=== PATIENT | male | born 1940 | race Caucasian/White ===

== ENCOUNTER 2018-06-04 05:07 | Inpatient (IN) ==
[2018-06-04] MEDS ORDERED: MethylPREDNISolone Sod Succinate Inj 125 MG/2 ML Vial ONE (05:57)
[2018-06-04] MEDS ORDERED: Heparin - SQ 10,000 UNITS/ML Vial ONE (05:57)
[2018-06-04] MEDS ORDERED: ceFAZolin 1 GM Premix Inj 1 GM/50 ML PIGGYBACK IV.SIG ONE ×3 (05:57→11:49)
[2018-06-04] MEDS ORDERED: Dextrose 50% in Water 50 ML Vial IV.PUSH PRN ×2 (05:59→13:12)
[2018-06-04] MEDS ORDERED: Insulin Regular (For Infusion) 100 UNIT in Sodium Chlor 0.9% Inj 99 ML IV.CONT PRN (05:59)
[2018-06-04] MEDS ORDERED: Chlorhexidine 4% Topical 120 APPLIC/120 ML Bottle TOPICAL SCH (06:00)
[2018-06-04] MEDS ORDERED: Sodium Chlor 0.9% Inj 77.5 ML, Papaverine Inj 60 MG, Nitroglycerin Inj 100 MCG, dilTIAZ... IRRIGATION SCH ×3 (06:00)
[2018-06-04] MEDS ORDERED: Sodium Chloride 0.9% Irr Bot 500 ML, ceFAZolin Inj 500 MG IRRIGATION SCH ×2 (06:00)
[2018-06-04] MEDS: Metoprolol Tartrate 25 MG Tablet PO SCH (06:13)
[2018-06-04] MEDS ORDERED: Chlorhexidine Gluconate 2% 1 Pack (2 Cloths) TOPICAL ONE (06:15)
[2018-06-04] MEDS ORDERED: Sodium Chlor 0.9% Inj 500 ML IV.CONT ONE (06:15)
[2018-06-04] MEDS ORDERED: ceFAZolin 2 GM Premix Inj 2 GM/50 ML PIGGYBACK IV.SIG SCH (07:00)
[2018-06-04] MEDS ORDERED: CUST1000P IRRIGATION ONE (07:25)
[2018-06-04] MEDS ORDERED: Potassium Chloride Inj 40 MEQ/20 ML Vial ONE (07:26)
[2018-06-04] MEDS ORDERED: Albumin Human 25% Inj 50 ML IV.SIG ONE (07:27)
[2018-06-04] MEDS ORDERED: Heparin 10,000 UNITS/10 ML Vial (for IV use) ONE (07:28)
[2018-06-04] MEDS ORDERED: Potassium Chlor 20 mEq Premix 20 MEQ/100 ML PIGGYBACK IV.SIG ONE (12:57)
[2018-06-04] MEDS ORDERED: Post-op Orders (for Pharmacy) OTHER STA (13:12)
[2018-06-04] MEDS ORDERED: RESP: Racemic Epinephrine 2.25% 0.5 ML Neb NEB PRN (13:12)
[2018-06-04] MEDS ORDERED: Magnesium Sulfate Inj 2 GM in Sodium Chlor 0.9% Inj 96 ML IV.SIG PRN ×4 (13:12)
[2018-06-04] MEDS ORDERED: Calcium Chloride Inj 1 GM/10 ML Syringe IV.PUSH PRN (13:12)
[2018-06-04] MEDS ORDERED: fentaNYL Citrate Inj 100 MCG/2 ML Ampul IV.PUSH PRN (13:12)
[2018-06-04] MEDS ORDERED: Potassium Chlor 20 mEq Premix 20 MEQ/100 ML PIGGYBACK IV.SIG PRN (13:12)
[2018-06-04] MEDS ORDERED: Clevidipine Inj 25 MG/50 ML VIAL IV.CONT PRN (13:12)
--- NOTE | 2018-06-04 13:31 | P.OP ---
- Preoperative Diagnosis (1) Aortic stenosis (2) CAD (coronary artery disease) (3) Diastolic heart failure (4) Chest pain Postoperative Diagnosis: same Date of procedure: 06/04/18 Procedure: AVR with a 23 Koo Magna Ease tissue valve CABG x 3 MCKENZIE to LAD - good SVG to OM3 - good SVG to PDA - good EVH MARGAUX Implants: 23 Koo pericardial valve Anesthesia: GETA Surgeon: Valerie Pal MD Metallurgical Inspector: Krissy Dickey Pathology: other (aortic valve fragments) Operation and Findings: Cross-clamp time 107 minutes Cardiopulmonary bypass time 132 minutes Drains 36 Tongan mediastinum and 32 Tongan left pleural chest tubes Findings: The patient had a moderately calcified trileaflet aortic valve. The OM2 artery was too small to graft. At the conclusion of the procedure, intraoperative MARGAUX showed a well-seated aortic valve with no perivalvular leaks. Left ventricular function was normal. Disposition: The patient was transferred to the CVICU in stable, but guarded condition. Operation in detail: After adequate general anesthesia, the patient was prepped and draped in the usual manner. A median sternotomy was performed and electrocautery was used to obtain hemostasis. Left internal mammary artery was procured as a pedicle from the 7th ribs to the 1st rib in the usual manner. Simultaneously, the right greater saphenous vein was procured using a minimally invasive endoscopic technique. The vein was prepared for anastomosis and the leg wound was irrigated and closed in 2 layers. The pericardium was opened and the distal mammary artery was instrumented for anastomosis after adequate heparinization for cardiopulmonary bypass. The heart was instrumented for cardiopulmonary bypass in the usual manner. Antegrade Custodiol cardioplegia was used. The left ventricle was vented through the right superior pulmonary vein. The patient was placed on cardiopulmonary bypass and target vessels were identified. And aortic cross-clamp was applied and the heart was arrest is using Custodiol antegrade cardioplegia. After adequate arrest, the PDA was opened with a [place] blade and found to be a 1.5 mm good target. The saphenous vein was approximated to the artery using a running 7-0 Prolene suture. The vein was measured for length and orientation and the proximal anastomosis was performed using a running 5-0 prolene suture after creating an aortotomy with a 5 mm punch. The 3rd circumflex marginal artery was opened with a [place] blade and found to be a 1.5 millimeter good target. The saphenous vein was approximated to the artery using a running 7-0 Prolene suture. The vein was measured for length and orientation and suspended from the pericardium.The distal LAD was then opened with a [place] blade and found to be a 1-1/2 millimeters . The left internal mammary artery was approximated to the LAD using a running 7 0 Prolene suture. The pedicle was tacked to the epicardium using interrupted 5 0 silk suture. The aorta was vented and opened above the sinotubular ridge. The valve was found to be trileaflet and moderately calcified. Aortic valve was excised sharply and the annulus was decalcified using rongeurs. The annulus was sized to a 23 Magna Ease bioprosthetic valve which was seated using several interrupted 2-0 Tycron pledgeted horizontal mattress sutures. After seating the valve and securing the sutures, the aorta was repaired in 2 layers using running 4-0 Prolene suture. The patient was placed in steep Trendelenburg position,and the aorta was vented and the proximal anastomosis to the OM3 graft was performed using a running 5-0 Prolene suture after creating an aortotomy with a 5 millimeter punch. The aorta and left ventricle were vented and the aortic cross-clamp was removed for a total cross-clamp time of 107 minutes. The heart resumed a bradycardic rhythm which eventually converted to a sinus rhythm after several minutes. The heart was filled allowed to eject. The aortic valve replacement was then assessed by intraoperative MARGAUX. The valve was found to be well seated with no perivalvular leak. Left ventricular function was noted to be normal. The patient was weaned from cardiopulmonary bypass for total bypass run of 132 minutes. Protamine was administered to reverse the heparin and all cannulae were removed without incident. A 36 Tongan mediastinal/ 32 Tongan left pleural chest tubes were positioned and each was secured to the skin with a 0 silk suture. The operative field was then examined again for hemostasis which was obtained using electrocautery. The wound was then closed in layers by approximating the sternal tables with interrupted number 6 stainless steel wires following which the presternal fashion was approximately around a 1. PDS suture. The wound was copiously irrigated. The subcutaneous tissue was approximated using a running 2- 0 Vicryl suture and the skin was approximated with running 4-0 Monocryl subcuticular stitch. All sponge and instrument counts were correct at the close of the procedure and the patient was transported the CVICU in stable, but guarded condition. Valerie Pal M.D., F.Patricia.C.C., F.A.C.S.
[2018-06-04] MEDS ORDERED: Albumin Human 5% Inj 500 ML IV.SIG ONE (13:40)
--- NOTE | 2018-06-04 13:42 | P.PNCV ---
- Note Subjective/Hospital Course: pt initally seen 78-year-old male patient of Dr. Angelita Goodman, also Dr. Riley, who has symptoms of fatigue, known heart murmur for the last 20 years. Went in for a followup visit with Dr. Riley with a recent positive nuclear stress test. Underwent elective cardiac catheterization today, which showed an ejection fraction of 60%, proximal LAD 75% stenosed, the circumflex was 90% stenosed, the OM 90%, the RCA was 99% stenosed, which was nondominant. The patient also has history of aortic valve stenosis. Recent echocardiogram on 05/25/2018 from showed an aortic valve area 0.8, some trace mitral regurgitation, mild tricuspid regurgitation. We were consulted to evaluate for coronary artery bypass grafting and aortic valve replacement. PAST MEDICAL HISTORY: Carotid artery disease. Most recent carotid ultrasound showed less than 50% on right and left internal carotids, History of CVA, TIA. He had a lacunar infarct noticed on an MRI of the brain in 10/2017. There were revealed some scattered old lacunar infarcts within the bilateral basal ganglia, History of hypertension, Hyperlipidemia, Diet-controlled diabetes mellitus, Crohn's disease, Remote history of gastrointestinal bleed when he was 33 years old. 06/04/18 pt electively admitted for surgery surgery: Objective: Vital Signs - 24 hr 06/04/18 06:31 Temperature 98.4 F Pulse Rate 80 Respiratory Rate 16 Blood Pressure 144/79 H Pulse Oximetry 94 L Labs: Laboratory Results - last 12 hr 06/04/18 06:10 Blood Type O Positive Antibody Screen Negative MTS Gel Crossmatch See Detail
--- NOTE | 2018-06-04 13:47 | P.DCO ---
- Diagnosis (1) S/P AVR (aortic valve replacement) Status: Acute (2) S/P CABG (coronary artery bypass graft) Status: Acute (3) Aortic stenosis Status: Acute (4) CAD (coronary artery disease) Status: Acute (5) Diastolic heart failure Status: Chronic (6) Chest pain Status: Acute - Home Health Nursing Order: Medical education, Signs/symptoms of disease process, Diabetic education , Wound care and dressing changes, Nursing assessment with vital signs Instructions: PREVENA Single Use Negative Wound Therapy System Caregiver Instruction Sheet 1. A Prevena dressing system was applied to the chest incision during surgery , to promote wound healing. It works via a suction device (negative pressure wound therapy) to remove low to moderate levels of exudate (drainage) and infectious materials. We recommend that the device stay in place for up to seven days, from day of surgery. 2. Day of Surgery___// Day of Removal __// 3. The dressing should only be removed by a health manager respiratory care. Please arrange removal of device to coincide with Home Health visit and or with Nursing staff at Rehab 4. If skin reddening or irritation of skin occurs, or excessive drainage, please notify the Cardiovascular Surgeons office at [phone]. 5. Light showering is permissible; however the pump should be disconnected and placed in safe location, where it will not get wet. The dressing should not be exposed to direct spray or submerged in water. No bath tub / shower only. Ensure the end of the tubing attached to the dressing is facing down so that water does not enter the top of the tube. 6. To remove Prevena dressing: press purple button to turn off device / remove the suction. Then disconnect the tubing from the pump. The fixation strips should be stretched away from the skin and the dressing lifted at one corner and peeled back until it has been fully removed. 7. After removal, it is ok to shower daily using liquid dial soap and clean wash cloth, rinse and pat dry, and leave incision open to air dry. For any concerns regarding Prevena dressing, and or wounds, please contact Meena Berry, patient navigator at [phone] or notify the Cardiovascular Surgeons office at [phone]. Incentive spirometry Q1 hr x 10, while awake, also use acapella device hourly whole awake Sternal Breast Bone Precautions: NO pushing or pulling, ( pt must use sternal pillow to support chest with all activities and with coughing ( takes up to 3 months breast bone to heal ) Daily incision care: ok to shower daily, no tub bath. Wash all incisions with liquid dial soap, clean wash cloth to each site, rinse and pat dry. Observe for any signs of infection, such as drainage which is dark yellow, lucas, green or foul smelling. Immediately report to the surgeon any drainage from the chest incision, or legs, and for any abnormal drainage from the chest tube sites. Notify surgeon if any temp >101.5 degrees F. When specialty dressing removed/ or if you do not have one, continue to shower daily as above, then rinse and pat incision dry and paint with betadine daily x 5 days. Allow steri strips to fall off if you have any. Avoid lotions, creams, salves, oils, etc. for the first month Please see attached forms for additional instructions regarding post Open Heart specialty wound vacuum dressings. LUZ MARINA or Prevena , Dressing to be removed by Nursing staff on __06/11/[address] Pal patients , please obtain CBC, BMP, PA & Lat CXR in 2 weeks, results to Dr. Pal ( prescription will be given) ( ) (Tele: [phone]) , Valve replacement pts will need 2decho in 2 weeks with results to Dr. Pal . Please obtain 2 d echo at your station cleaning porter office if possible F/U appointment: as per DC instructions: PCP in 2 weeks, CV surgeon 2 weeks, Hydro Plant Site Manager 3-4 weeks For any questions regarding incisions/ dressing / meds / post op care or above Symptoms, Thursday 8am-5pm Heart & Vascular Surgery Office ( Dr. Kaminski & Dr. Pal), After Hours / Nights (5pm -8am) Weekends and Holidays Please call [facility] Cardiac Inter[facility] Unit (CIC) Charge Nurse Heart and Vascular Surgery patients *Special attention to sternal dressing Mandatory frequency Assess and evaluation, 4 days in a row The next week 3X week 2 times a week for 4 weeks 1 time a week for 5 weeks Schedule Heart and Vascular patients for full 60 day certification period Initial visit Review Open Heart Surgery Discharge Instructions (Sternal precautions, Activity, Elastic hose, Incision care, Driving, Incentive spirometry, Smoking, [place], Work and other) Need Betadine to paint incision Medication reconciliation Importance of follow up care/ check on appointments Make calendar record temperature daily When to call [facility] at Home nurse, review instructions, phone list Incentive Spirometry, demonstration Visit 1- Begin discharge instruction for patient family and/ or caregiver using teach back method- Signs and symptoms of infection Disease characteristics Medicines and side effects Foods and nutrition/ appetite Infection control/ hand washing/ hygiene Visit 2- Continue teaching Discharge instructions- include additional information on smoking cessation , sternal dressing (sternal vac) Visit 3- Continue teaching- Cough and deep breathing, incision monitoring. Choose my plate Visit 4- Continue teaching- Discuss limitations Discuss how they are feeling Discuss progress toward goals Remaining visits- continue teaching and monitoring For any questions please call : Thursday 8am-5pm Heart & Vascular Surgery Office ( Dr. Kaminski & Dr. Pal), After Hours / Nights (5pm -8am) Weekends and Holidays Please call [facility] Cardiac Intermediate Care Unit (CIC) Charge Nurse - Case Management Consult Case Management Consult-Home Health: Yes - Certification I have seen patient Nagi Cordoba on 06/04/18. My clinical findings support the need for the requested home health care services because: Deconditioned with increased weakness I certify that my clinical findings support that this patient is homebound because: Post-op weakness
[2018-06-04] MEDS ORDERED: fentaNYL Citrate Inj 250 MCG/5 ML Ampul ONE ×2 (14:00)
--- NOTE | 2018-06-04 14:02 | XR ---
EXAM DATE: 06/04/2018 1:59 PM EST AGE/SEX: 78 years / Male INDICATIONS: Evaluate for cardiac disease. CLINICAL DATA: This is the patient's initial encounter. Patient reports that signs and symptoms have been present for 1 day and indicates a pain score of Nonresponsive. MEDICAL/SURGICAL HISTORY: Non-responsive. CABG. COMPARISON: [facility], CHEST 2V PA&LAT, 05/25/2018. . FINDINGS: Median sternotomy wires are noted status post coronary artery bypass graft surgery. Endotracheal tube has its tip 2 cm above the mimi. Mediastinal drain and left chest tube are in good positions. No p neumothorax is noted. No pulmonary edema is noted. Right internal jugular central line has its tip in superior vena cava. The lungs are clear. CONCLUSION: 1. No focal infiltrate or pulmonary vascular congestion status post coronary artery bypass graft pro cedure. 2. Multiple tubes and lines are in good positions. Electronically signed by: Adelfo Stratton MD Board Certified Radiologist 06/04/2018 2:01 PM EST
[2018-06-04] MEDS: Albumin Human 25% Inj 0 ML IV.SIG ONE ×2 (14:13→14:59)
[2018-06-04] MEDS: Potassium Chlor 20 mEq Premix 20 MEQ/100 ML PIGGYBACK IV.SIG PRN ×3 (14:16→20:32)
[2018-06-04] MEDS: Calcium Chloride Inj 1 GM in Sodium Chlor 0.9% Inj 100 ML IV.SIG PRN ×2 (14:17→16:46)
[2018-06-04] MEDS: Albumin Human 5% Inj 250 ML IV.SIG PRN ×2 (14:58→20:51)
[2018-06-04] MEDS: Insulin Regular (For Infusion) 100 UNIT in Sodium Chlor 0.9% Inj 99 ML IV.CONT PRN (19:00)
[2018-06-04] MEDS: Metoprolol Inj 5 MG/5 ML Vial IV.PUSH PRN ×2 (19:41→19:45)
[2018-06-04] MEDS: hydrALAZINE HCl Inj 20 MG/ML Vial IV.PUSH PRN (19:48)
[2018-06-04] MEDS: ceFAZolin Inj 1 GM in Sodium Chlor 0.9% Inj 100 ML IV.SIG SCH (19:55)
[2018-06-04] MEDS: Dexmedetomidine Inj 200 MCG in Sodium Chlor 0.9% Inj 48 ML IV.CONT PRN (20:00)
[2018-06-05] MEDS: Metoprolol Inj 5 MG/5 ML Vial IV.PUSH PRN ×3 (00:12→20:09)
[2018-06-05] MEDS: Amiodarone 200 MG Tablet PO SCH ×3 (02:01→20:14)
[2018-06-05] MEDS: Insulin Regular (For Infusion) 100 UNIT in Sodium Chlor 0.9% Inj 99 ML IV.CONT PRN (02:47)
[2018-06-05] MEDS: Dexmedetomidine Inj 200 MCG in Sodium Chlor 0.9% Inj 48 ML IV.CONT PRN (04:15)
[2018-06-05] MEDS: ceFAZolin Inj 1 GM in Sodium Chlor 0.9% Inj 100 ML IV.SIG SCH ×2 (04:17→12:16)
[2018-06-05 04:36] LABS: Hematocrit 28.6 % (39.0-51.0); Hemoglobin 9.8 gm/dL (13.0-17.0); Mean Corpuscular HGB Conc 34.3 % (32.0-36.0); Mean Corpuscular Hemoglobin 29.7 pg (27.0-34.0); Mean Corpuscular Volume 86.6 fL (80.0-100.0); Mean Platelet Volume 8.3 fL (7.0-11.0); Platelet Count 153 th/mm3 (150-450); Red Cell Distribution Width 14.6 % (11.6-17.2); White Blood Count 10.6 th/mm3 (4.0-11.0)
[2018-06-05 04:59] LABS: Carbon Dioxide 24.1 meq/L (21.0-32.0); Magnesium 2.1 mg/dL (1.5-2.5); Potassium 3.7 meq/L (3.5-5.1)
--- NOTE | 2018-06-05 06:11 | XR ---
EXAM DATE: 06/05/2018 6:01 AM EST AGE/SEX: 78 years / Male INDICATIONS: Shortness of breath, possible pneumothorax. CLINICAL DATA: This is the patient's subsequent encounter. Patient reports that signs and symptoms h ave been present for 2 days and indicates a pain score of 9/10. MEDICAL/SURGICAL HISTORY: Diabetes. Hypertension. Crohn?s disease. CABG. Carotid endarterect isaac. COMPARISON: [facility], CHEST 1V SINGLE AP, 06/04/2018. . FINDINGS: Median sternotomy changes are again noted. Mediastinal drain and left chest tube remain in place. No pneumothorax. Mild left base atelectasis and tiny pleural effusion noted. Heart size within normal limits. Patient has been extubated. Right internal jugular central venous ca theter with tip in the superior vena cava again noted. CONCLUSION: 1. Mild atelectasis and tiny effusion at the left lung base. 2. Interim extubation and nasogastric tube removal. Left chest tube, mediastinal drain and right IJ central venous catheter remain. Electronically signed by: Joshua Jha MD Board Certified Radiologist 06/05/2018 6:10 AM EST
[2018-06-05] MEDS: amLODIPine 5 MG Tablet PO SCH (08:58)
[2018-06-05] MEDS: Finasteride 5 MG Tablet PO SCH (08:58)
--- NOTE | 2018-06-05 10:09 | P.PNCV ---
- Note CVT: Post Op Day #: 1 Subjective/Hospital Course: pt initally seen 78-year-old male patient of Dr. Angelita Goodman, also Dr. Riley, who has symptoms of fatigue, known heart murmur for the last 20 years. Went in for a followup visit with Dr. Riley with a recent positive nuclear stress test. Underwent elective cardiac catheterization today, which showed an ejection fraction of 60%, proximal LAD 75% stenosed, the circumflex was 90% stenosed, the OM 90%, the RCA was 99% stenosed, which was nondominant. The patient also has history of aortic valve stenosis. Recent echocardiogram on 05/25/2018 from showed an aortic valve area 0.8, some trace mitral regurgitation, mild tricuspid regurgitation. We were consulted to evaluate for coronary artery bypass grafting and aortic valve replacement. PAST MEDICAL HISTORY: Carotid artery disease. Most recent carotid ultrasound showed less than 50% on right and left internal carotids, History of CVA, TIA. He had a lacunar infarct noticed on an MRI of the brain in 10/2017. There were revealed some scattered old lacunar infarcts within the bilateral basal ganglia, History of hypertension, Hyperlipidemia, Diet-controlled diabetes mellitus, Crohn's disease, Remote history of gastrointestinal bleed when he was 33 years old. 06/04/18 pt electively admitted for surgery surgery: AVR, 23 Koo tissue valve, CABG x 3 05/26/18 Confused this morning. O and A x 1. No focal findings on exam, but repeats himself and isn't following commands either. Objective: Vital Signs - 24 hr 06/04/18 13:35 06/04/18 13:43 06/04/18 13:48 Temperature 97.6 F 97.6 F Pulse Rate 83 Respiratory Rate 12 12 Blood Pressure 87/49 L Pulse Oximetry 99 99 06/04/18 14:00 06/04/18 14:45 06/04/18 15:28 Temperature 96.0 F L Pulse Rate 74 77 71 Respiratory Rate 10 L Blood Pressure 128/54 L Pulse Oximetry 99 06/04/18 16:25 06/04/18 16:51 06/04/18 16:54 Temperature 97.1 F L 97.1 F L Pulse Rate 85 Respiratory Rate 18 Blood Pressure 116/47 L Pulse Oximetry 98 99 06/04/18 17:49 06/04/18 17:57 06/04/18 19:00 Temperature 97.5 F L 98 F Pulse Rate 97 H 89 100 H Respiratory Rate 16 18 16 Blood Pressure 124/54 L 127/58 L Pulse Oximetry 99 97 06/04/18 20:18 06/04/18 22:00 06/04/18 23:00 Temperature 97.6 F 98.3 F Pulse Rate 83 115 H Respiratory Rate 18 16 Blood Pressure 130/72 Pulse Oximetry 95 95 06/04/18 23:47 06/05/18 03:00 06/05/18 03:51 Temperature 98.3 F 99.3 F Pulse Rate 104 H 101 H Respiratory Rate 16 20 Blood Pressure 147/56 H Pulse Oximetry 100 06/05/18 07:23 06/05/18 07:28 Temperature 99.1 F Pulse Rate 102 H 98 H Respiratory Rate 18 Blood Pressure 144/58 H Pulse Oximetry 100 Labs: Laboratory Results - last 12 hr 06/04/18 06/04/18 06/05/18 22:15 23:55 01:04 WBC RBC Hgb Hct MCV MCH MCHC RDW Plt Count MPV Sodium Potassium Chloride Carbon Dioxide Anion Gap BUN Creatinine Estimated GFR POC Glucose 95 180 H 165 H Random Glucose Calcium Magnesium 06/05/18 06/05/18 06/05/18 02:13 03:44 04:05 WBC 10.6 RBC 3.30 L Hgb 9.8 L Hct 28.6 L MCV 86.6 MCH 29.7 MCHC 34.3 RDW 14.6 Plt Count 153 D MPV 8.3 Sodium Potassium Chloride Carbon Dioxide Anion Gap BUN Creatinine Estimated GFR POC Glucose 145 H 149 H Random Glucose Calcium Magnesium 06/05/18 06/05/18 06/05/18 04:05 04:33 05:16 WBC RBC Hgb Hct MCV MCH MCHC RDW Plt Count MPV Sodium 143 Potassium 3.7 Chloride 107 Carbon Dioxide 24.1 Anion Gap 12 BUN 18 Creatinine 1.12 Estimated GFR 63 L POC Glucose 110 137 H Random Glucose 115 H Calcium 8.0 L Magnesium 2.1 06/05/18 06:26 WBC RBC Hgb Hct MCV MCH MCHC RDW Plt Count MPV Sodium Potassium Chloride Carbon Dioxide Anion Gap BUN Creatinine Estimated GFR POC Glucose 114 H Random Glucose Calcium Magnesium Result Diagrams: 06/05/18 04:05 06/05/18 04:05 Imaging: Chest X-Ray 06/05/18 05:00 CONCLUSION: 1. Mild atelectasis and tiny effusion at the left lung base. 2. Interim extubation and nasogastric tube removal. Left chest tube, mediastinal drain and right IJ central venous catheter remain. Cardiovascular: RRR Telemetry: ST Pulmonary: Few crackles bilaterally GI/: NABS, NT Incision: dry and intact CT: ~600 ml since OR - Plan (3) Aortic stenosis (4) CAD (coronary artery disease) (5) Diastolic heart failure (6) Chest pain Will hold all pain medications and d/c Precedex. Serial neuro exams Continue chest tubes Diurese PT/OT - up to chair Start lopressor Advance diet CBC, BMP in AM. Patient has baseline dementia. Hope for some clearing neurologically. (3) Aortic stenosis Qualifiers: Cardiac valve disease etiology: etiology unspecified Qualified Code(s): I35.0 - Nonrheumatic aortic (valve) stenosis (4) CAD (coronary artery disease) Qualifiers: Coronary Disease-Associated Artery/Lesion type: [place] artery [place] vs. transplanted heart: [place] heart Associated angina: with stable angina Qualified Code(s): I25.118 - Atherosclerotic heart disease of [place] coronary artery with other forms of angina pectoris (5) Diastolic heart failure Qualifiers: Heart failure chronicity: acute on chronic Qualified Code(s): I50.33 - Acute on chronic diastolic (congestive) heart failure (6) Chest pain Qualifiers: Chest pain type: chest pain due to myocardial ischemia Ischemic chest pain type: stable angina pectoris Qualified Code(s): I20.8 - Other forms of angina pectoris
[2018-06-05] MEDS: hydrALAZINE HCl Inj 20 MG/ML Vial IV.PUSH PRN (11:13)
--- NOTE | 2018-06-05 11:29 | ECG ---
Date Performed: 06/05/2018 Time Performed: 06:21:28 PTAGE: 78 years EKG: Sinus rhythm Inferior infarct - age undetermined Abnormal ECG NO PREVIOUS TRACING DOCTOR: Jim Woods Interpretating Date/Time 06/05/2018 11:27:57
[2018-06-05] MEDS: Metoprolol Tartrate 25 MG Tablet PO SCH ×2 (11:44→20:14)
[2018-06-05] MEDS: Insulin NovoLOG Aspart Correctional Sugar Inj SQ SCH ×3 (14:11→21:44)
[2018-06-05] MEDS: ceFAZolin 1 GM Premix Inj 1 GM/50 ML PIGGYBACK IV.SIG SCH (20:09)
[2018-06-05] MEDS: Docusate Sodium 100 MG Capsule PO SCH ×2 (20:14→20:24)
[2018-06-06] MEDS: Insulin NovoLOG Aspart Correctional Sugar Inj SQ SCH ×6 (02:47→21:38)
[2018-06-06] MEDS: ceFAZolin 1 GM Premix Inj 1 GM/50 ML PIGGYBACK IV.SIG SCH (03:01)
[2018-06-06 04:57] LABS: Baso % (Auto) 0.1 % (0.0-2.0); Hematocrit 29.6 % (39.0-51.0); Hemoglobin 10.4 gm/dL (13.0-17.0); Lymph # (Auto) 1.6 th/mm3 (1.0-4.8); Lymph % (Auto) 11.2 % (9.0-44.0); Mean Corpuscular Hemoglobin 29.8 pg (27.0-34.0); Mean Corpuscular Volume 85.1 fL (80.0-100.0); Mono # (Auto) 1.7 th/mm3 (0.0-0.9); Mono % (Auto) 11.7 % (0.0-8.0); Neut # (Auto) 10.9 th/mm3 (1.8-7.7); Platelet Count 184 th/mm3 (150-450); Red Blood Count 3.48 mil/mm3 (4.50-5.90); Red Cell Distribution Width 14.4 % (11.6-17.2); White Blood Count 14.2 th/mm3 (4.0-11.0)
[2018-06-06 05:22] LABS: Carbon Dioxide 30.8 meq/L (21.0-32.0); Potassium 3.4 meq/L (3.5-5.1)
[2018-06-06] MEDS: Docusate Sodium 100 MG Capsule PO SCH ×3 (08:26→21:36)
[2018-06-06] MEDS: Amiodarone 200 MG Tablet PO SCH ×3 (08:26→21:36)
[2018-06-06] MEDS: Finasteride 5 MG Tablet PO SCH ×2 (08:28→12:26)
[2018-06-06] MEDS: amLODIPine 5 MG Tablet PO SCH ×2 (08:28→12:27)
[2018-06-06] MEDS: Polyethylene Glycol 3350 17 GM Packet PO SCH ×2 (08:28→12:26)
[2018-06-06] MEDS: Metoprolol Tartrate 25 MG Tablet PO SCH ×3 (08:28→21:37)
[2018-06-06] MEDS: Multivitamin/Minerals Therapeutic Tablet PO SCH ×2 (08:29→12:27)
--- NOTE | 2018-06-06 10:44 | P.PNCV ---
- Note CVT: Post Op Day #: 2 Subjective/Hospital Course: pt initally seen 78-year-old male patient of Dr. Angelita Goodman, also Dr. Riley, who has symptoms of fatigue, known heart murmur for the last 20 years. Went in for a followup visit with Dr. Riley with a recent positive nuclear stress test. Underwent elective cardiac catheterization today, which showed an ejection fraction of 60%, proximal LAD 75% stenosed, the circumflex was 90% stenosed, the OM 90%, the RCA was 99% stenosed, which was nondominant. The patient also has history of aortic valve stenosis. Recent echocardiogram on 05/25/2018 from showed an aortic valve area 0.8, some trace mitral regurgitation, mild tricuspid regurgitation. We were consulted to evaluate for coronary artery bypass grafting and aortic valve replacement. PAST MEDICAL HISTORY: Carotid artery disease. Most recent carotid ultrasound showed less than 50% on right and left internal carotids, History of CVA, TIA. He had a lacunar infarct noticed on an MRI of the brain in 10/2017. There were revealed some scattered old lacunar infarcts within the bilateral basal ganglia, History of hypertension, Hyperlipidemia, Diet-controlled diabetes mellitus, Crohn's disease, Remote history of gastrointestinal bleed when he was 33 years old. 06/04/18 pt electively admitted for surgery surgery: AVR, 23 Koo tissue valve, CABG x 3 06/05/18 Confused this morning. O and A x 1. No focal findings on exam, but repeats himself and isn't following commands either. 06/06/18 Periods of agitation and confusion - improved since yesterday. He is refusing to take oral medications. Objective: Vital Signs - 24 hr 06/05/18 11:00 06/05/18 11:04 06/05/18 11:25 Temperature 99.0 F Pulse Rate 111 H 115 H Respiratory Rate 18 Blood Pressure 184/73 H Pulse Oximetry 93 L 94 L 06/05/18 11:55 06/05/18 14:51 06/05/18 15:45 Temperature 99.3 F Pulse Rate 113 H 121 H 122 H Respiratory Rate 18 Blood Pressure 155/60 H 154/72 H Pulse Oximetry 94 L 95 06/05/18 19:00 06/05/18 20:00 06/05/18 20:28 Temperature 97.3 F L Pulse Rate 105 H 110 H Respiratory Rate 20 Blood Pressure 175/79 H Pulse Oximetry 96 96 06/05/18 21:00 06/05/18 22:00 06/05/18 23:00 Temperature Pulse Rate 111 H 111 H 110 H Respiratory Rate Blood Pressure Pulse Oximetry 06/06/18 00:00 06/06/18 01:00 06/06/18 02:00 Temperature 97.6 F Pulse Rate 110 H 105 H 102 H Respiratory Rate 20 Blood Pressure 153/86 H Pulse Oximetry 96 06/06/18 03:00 06/06/18 04:00 06/06/18 05:00 Temperature 98.4 F Pulse Rate 100 H 103 H 112 H Respiratory Rate 16 Blood Pressure 152/73 H Pulse Oximetry 94 L 06/06/18 06:00 06/06/18 07:00 06/06/18 07:48 Temperature Pulse Rate 107 H 104 H 104 H Respiratory Rate 16 Blood Pressure 191/91 H Pulse Oximetry 95 06/06/18 08:00 06/06/18 08:37 Temperature Pulse Rate 105 H 101 H Respiratory Rate 20 Blood Pressure 155/84 H Pulse Oximetry Labs: Laboratory Results - last 12 hr 06/06/18 06/06/18 06/06/18 02:31 04:40 04:40 WBC 14.2 H RBC 3.48 L Hgb 10.4 L Hct 29.6 L MCV 85.1 MCH 29.8 MCHC 35.0 RDW 14.4 Plt Count 184 MPV 8.0 Neut % (Auto) 77.0 H Lymph % (Auto) 11.2 Cook % (Auto) 11.7 H Eos % (Auto) 0.0 Baso % (Auto) 0.1 Neut # (Auto) 10.9 H Lymph # (Auto) 1.6 Cook # (Auto) 1.7 H Eos # (Auto) 0.0 Baso # (Auto) 0.0 WBC Differential . Differential Comment Auto diff final Sodium 141 Potassium 3.4 L Chloride 101 Carbon Dioxide 30.8 Anion Gap 9 BUN 23 H Creatinine 1.04 Estimated GFR 69 L POC Glucose 145 H Random Glucose 126 H Calcium 8.0 L Magnesium 2.0 Result Diagrams: 06/06/18 04:40 06/06/18 04:40 Imaging: Chest X-Ray 06/05/18 05:00 CONCLUSION: 1. Mild atelectasis and tiny effusion at the left lung base. 2. Interim extubation and nasogastric tube removal. Left chest tube, mediastinal drain and right IJ central venous catheter remain. Cardiovascular: RRR Telemetry: Sinus tach Pulmonary: Decreased BS bilat GI/: NABS, NT Incision: Dry and intact CT: ~140ml/12 hrs - Plan (3) Aortic stenosis (4) CAD (coronary artery disease) (5) Diastolic heart failure (6) Chest pain Transfer to stepdown Remove [place] and chest tubes CXR, CBC, BMP in AM Supp K D/C lasix Patient refusing oral meds, but hypertensive and tachycardic. Will change BB to IV for now. If no change, will consider Neurology consultation. (3) Aortic stenosis Qualifiers: Cardiac valve disease etiology: etiology unspecified Qualified Code(s): I35.0 - Nonrheumatic aortic (valve) stenosis (4) CAD (coronary artery disease) Qualifiers: Coronary Disease-Associated Artery/Lesion type: [place] artery [place] vs. transplanted heart: [place] heart Associated angina: with stable angina Qualified Code(s): I25.118 - Atherosclerotic heart disease of [place] coronary artery with other forms of angina pectoris (5) Diastolic heart failure Qualifiers: Heart failure chronicity: acute on chronic Qualified Code(s): I50.33 - Acute on chronic diastolic (congestive) heart failure (6) Chest pain Qualifiers: Chest pain type: chest pain due to myocardial ischemia Ischemic chest pain type: stable angina pectoris Qualified Code(s): I20.8 - Other forms of angina pectoris
[2018-06-06] MEDS: Potassium Chlor 20 mEq Premix 20 MEQ/100 ML PIGGYBACK IV.SIG PRN ×2 (11:05→13:14)
[2018-06-06] MEDS: Metoprolol Inj 5 MG/5 ML Vial IV.PUSH PRN ×2 (11:11→12:00)
[2018-06-06 17:17] LABS: Calcium 8.1 mg/dL (8.5-10.1); Carbon Dioxide 34.6 meq/L (21.0-32.0); Magnesium 2.2 mg/dL (1.5-2.5); Potassium 3.5 meq/L (3.5-5.1)
[2018-06-07 01:33] LABS: Calcium 7.9 mg/dL (8.5-10.1); Carbon Dioxide 31.4 meq/L (21.0-32.0); Magnesium 2.3 mg/dL (1.5-2.5)
[2018-06-07] MEDS ORDERED: Bisacodyl 10 MG Supp RECTAL PRN (06:00)
[2018-06-07] MEDS: Insulin NovoLOG Aspart Correctional Sugar Inj SQ SCH ×4 (08:00→21:26)
[2018-06-07] MEDS: Polyethylene Glycol 3350 17 GM Packet PO SCH (08:20)
[2018-06-07] MEDS: Docusate Sodium 100 MG Capsule PO SCH ×2 (08:21→21:12)
[2018-06-07] MEDS: Metoprolol Tartrate 25 MG Tablet PO SCH ×3 (08:21→21:14)
[2018-06-07] MEDS: Amiodarone 200 MG Tablet PO SCH ×2 (08:21→21:16)
[2018-06-07] MEDS: Multivitamin/Minerals Therapeutic Tablet PO SCH (08:21)
[2018-06-07] MEDS: amLODIPine 5 MG Tablet PO SCH (08:21)
[2018-06-07] MEDS: Finasteride 5 MG Tablet PO SCH (08:22)
--- NOTE | 2018-06-07 10:53 | P.PNCV ---
- Note Subjective/Hospital Course: pt initally seen 78-year-old male patient of Dr. Angelita Goodman, also Dr. Riley, who has symptoms of fatigue, known heart murmur for the last 20 years. Went in for a followup visit with Dr. Riley with a recent positive nuclear stress test. Underwent elective cardiac catheterization today, which showed an ejection fraction of 60%, proximal LAD 75% stenosed, the circumflex was 90% stenosed, the OM 90%, the RCA was 99% stenosed, which was nondominant. The patient also has history of aortic valve stenosis. Recent echocardiogram on 05/25/2018 from showed an aortic valve area 0.8, some trace mitral regurgitation, mild tricuspid regurgitation. We were consulted to evaluate for coronary artery bypass grafting and aortic valve replacement. PAST MEDICAL HISTORY: Carotid artery disease. Most recent carotid ultrasound showed less than 50% on right and left internal carotids, History of CVA, TIA. He had a lacunar infarct noticed on an MRI of the brain in 10/2017. There were revealed some scattered old lacunar infarcts within the bilateral basal ganglia, History of hypertension, Hyperlipidemia, Diet-controlled diabetes mellitus, Crohn's disease, Remote history of gastrointestinal bleed when he was 33 years old. 06/04/18 pt electively admitted for surgery surgery: AVR, 23 Koo tissue valve, CABG x 3 06/05/18 Confused this morning. O and A x 1. No focal findings on exam, but repeats himself and isn't following commands either. 06/06/18 Periods of agitation and confusion - improved since yesterday. He is refusing to take oral medications. 06/07 not sleeping well at night confusion improving , family member at bedside still seeing things on the wall, but improving per pt on room air , remains in NSR Objective: Vital Signs - 24 hr 06/06/18 11:00 06/06/18 12:00 06/06/18 13:00 Temperature Pulse Rate 109 H 109 H 101 H Respiratory Rate 20 Blood Pressure 157/79 H Pulse Oximetry 96 06/06/18 14:00 06/06/18 15:00 06/06/18 16:00 Temperature 98.3 F Pulse Rate 100 H 98 H 100 H Respiratory Rate 16 Blood Pressure 141/69 H Pulse Oximetry 96 06/06/18 17:00 06/06/18 17:54 06/06/18 19:00 Temperature Pulse Rate 105 H 100 H 100 H Respiratory Rate Blood Pressure Pulse Oximetry 06/06/18 20:00 06/06/18 21:00 06/06/18 22:00 Temperature 99.3 F Pulse Rate 96 H 100 H 96 H Respiratory Rate 18 Blood Pressure 112/55 L Pulse Oximetry 95 06/06/18 23:00 06/07/18 00:00 06/07/18 01:00 Temperature 99.2 F Pulse Rate 87 86 88 Respiratory Rate 18 Blood Pressure 105/51 L Pulse Oximetry 94 L 06/07/18 02:00 06/07/18 03:00 06/07/18 04:00 Temperature 98.3 F Pulse Rate 86 92 H 90 Respiratory Rate 18 Blood Pressure 123/59 L Pulse Oximetry 95 06/07/18 05:00 06/07/18 06:00 06/07/18 07:00 Temperature Pulse Rate 88 88 90 Respiratory Rate Blood Pressure Pulse Oximetry 06/07/18 08:00 06/07/18 09:00 06/07/18 09:47 Temperature 98.0 F Pulse Rate 90 91 H 90 Respiratory Rate 17 Blood Pressure 97/53 L Pulse Oximetry 92 L GENERAL: A&O x 3 SKIN: Warm and dry. prevena dressing to chest , incision intact to left leg HEAD: Normocephalic. EYES: No scleral icterus. No injection or drainage. NECK: Supple, trachea midline. No JVD or lymphadenopathy. CARDIOVASCULAR: Regular rate and rhythm without murmurs, gallops, or rubs. RESPIRATORY: Breath sounds equal bilaterally. No accessory muscle use. GASTROINTESTINAL: Abdomen soft, non-tender, nondistended. MUSCULOSKELETAL: No cyanosis, or edema. BACK: Nontender without obvious deformity. No CVA tenderness. Labs: Laboratory Results - last 12 hr 06/04/18 06/07/18 06/07/18 06:10 01:10 07:56 Sodium 141 Potassium 4.0 Chloride 105 Carbon Dioxide 31.4 Anion Gap 5 BUN 30 H Creatinine 0.89 Estimated GFR 82 L POC Glucose 151 H Random Glucose 123 H Calcium 7.9 L Magnesium 2.3 MTS Gel Crossmatch See Detail Result Diagrams: 06/06/18 04:40 06/07/18 01:10 Telemetry: NSR - Plan (2) S/P CABG (coronary artery bypass graft) Plan: Neuro: no narcotics tylenol for pain trazadone for sleep at night environmental cues Resp: pulm toileting nebs ezpap CV: ASA statin , BB , amiodarone GI: motility meds OOB/ PT (3) Aortic stenosis (4) CAD (coronary artery disease) (5) Diastolic heart failure (6) Chest pain (3) Aortic stenosis Qualifiers: Cardiac valve disease etiology: etiology unspecified Qualified Code(s): I35.0 - Nonrheumatic aortic (valve) stenosis (4) CAD (coronary artery disease) Qualifiers: Coronary Disease-Associated Artery/Lesion type: [place] artery [place] vs. transplanted heart: [place] heart Associated angina: with stable angina Qualified Code(s): I25.118 - Atherosclerotic heart disease of [place] coronary artery with other forms of angina pectoris (5) Diastolic heart failure Qualifiers: Heart failure chronicity: acute on chronic Qualified Code(s): I50.33 - Acute on chronic diastolic (congestive) heart failure (6) Chest pain Qualifiers: Chest pain type: chest pain due to myocardial ischemia Ischemic chest pain type: stable angina pectoris Qualified Code(s): I20.8 - Other forms of angina pectoris
[2018-06-07] MEDS ORDERED: Acetaminophen 325 MG Tablet PO PRN (11:11)
[2018-06-07] MEDS: traZODone 50 MG Tablet PO SCH (21:12)
[2018-06-08] MEDS: Insulin NovoLOG Aspart Correctional Sugar Inj SQ SCH ×4 (08:19→22:41)
[2018-06-08] MEDS: Finasteride 5 MG Tablet PO SCH (08:20)
[2018-06-08] MEDS: Amiodarone 200 MG Tablet PO SCH ×2 (08:20→22:38)
[2018-06-08] MEDS: Multivitamin/Minerals Therapeutic Tablet PO SCH (08:20)
[2018-06-08] MEDS: amLODIPine 5 MG Tablet PO SCH (08:21)
[2018-06-08] MEDS: Metoprolol Tartrate 25 MG Tablet PO SCH ×3 (08:21→22:39)
[2018-06-08] MEDS: Docusate Sodium 100 MG Capsule PO SCH ×2 (08:21→22:42)
[2018-06-08] MEDS: Polyethylene Glycol 3350 17 GM Packet PO SCH (08:23)
--- NOTE | 2018-06-08 12:25 | P.PNCV ---
- Note CVT: Post Op Day #: 4 Subjective/Hospital Course: pt initally seen 78-year-old male patient of Dr. Angelita Goodman, also Dr. Riley, who has symptoms of fatigue, known heart murmur for the last 20 years. Went in for a followup visit with Dr. Riley with a recent positive nuclear stress test. Underwent elective cardiac catheterization today, which showed an ejection fraction of 60%, proximal LAD 75% stenosed, the circumflex was 90% stenosed, the OM 90%, the RCA was 99% stenosed, which was nondominant. The patient also has history of aortic valve stenosis. Recent echocardiogram on 05/25/2018 from showed an aortic valve area 0.8, some trace mitral regurgitation, mild tricuspid regurgitation. We were consulted to evaluate for coronary artery bypass grafting and aortic valve replacement. PAST MEDICAL HISTORY: Carotid artery disease. Most recent carotid ultrasound showed less than 50% on right and left internal carotids, History of CVA, TIA. He had a lacunar infarct noticed on an MRI of the brain in 10/2017. There were revealed some scattered old lacunar infarcts within the bilateral basal ganglia, History of hypertension, Hyperlipidemia, Diet-controlled diabetes mellitus, Crohn's disease, Remote history of gastrointestinal bleed when he was 33 years old. 06/04/18 pt electively admitted for surgery surgery: AVR, 23 Koo tissue valve, CABG x 3 06/05/18 Confused this morning. O and A x 1. No focal findings on exam, but repeats himself and isn't following commands either. 06/06/18 Periods of agitation and confusion - improved since yesterday. He is refusing to take oral medications. 06/07 not sleeping well at night confusion improving , family member at bedside still seeing things on the wall, but improving per pt on room air , remains in NSR 06/08/18 Doing well. O and A x 4. No more confusion, etc Objective: Vital Signs - 24 hr 06/07/18 12:24 06/07/18 14:00 06/07/18 15:00 Temperature Pulse Rate 87 85 90 Respiratory Rate Blood Pressure Pulse Oximetry 06/07/18 15:49 06/07/18 16:00 06/07/18 16:19 Temperature 99.1 F Pulse Rate 85 90 87 Respiratory Rate 20 20 Blood Pressure 107/63 Pulse Oximetry 94 L 06/07/18 18:00 06/07/18 19:00 06/07/18 20:00 Temperature 97.4 F L Pulse Rate 88 87 84 Respiratory Rate 18 Blood Pressure 97/54 L Pulse Oximetry 98 06/07/18 21:00 06/07/18 21:36 06/07/18 22:00 Temperature Pulse Rate 84 80 Respiratory Rate Blood Pressure Pulse Oximetry 95 06/07/18 23:00 06/08/18 00:00 06/08/18 01:00 Temperature 97.8 F Pulse Rate 83 74 80 Respiratory Rate 18 Blood Pressure 146/71 H Pulse Oximetry 99 06/08/18 02:00 06/08/18 03:00 06/08/18 04:00 Temperature 98.7 F Pulse Rate 82 76 86 Respiratory Rate 18 Blood Pressure 139/63 Pulse Oximetry 92 L 06/08/18 05:00 06/08/18 06:00 06/08/18 07:00 Temperature Pulse Rate 74 78 74 Respiratory Rate Blood Pressure Pulse Oximetry 06/08/18 08:00 06/08/18 08:32 06/08/18 08:34 Temperature 98.2 F Pulse Rate 90 80 Respiratory Rate 18 20 Blood Pressure 118/56 L Pulse Oximetry 92 L 92 L 06/08/18 09:00 06/08/18 10:00 06/08/18 11:00 Temperature Pulse Rate 78 72 77 Respiratory Rate Blood Pressure Pulse Oximetry 06/08/18 11:37 Temperature 97.8 F Pulse Rate 78 Respiratory Rate 18 Blood Pressure 121/56 L Pulse Oximetry 98 Labs: Laboratory Results - last 12 hr 06/08/18 06/08/18 08:19 11:16 POC Glucose 203 H 156 H Result Diagrams: 06/06/18 04:40 06/07/18 01:10 Imaging: Chest X-Ray 06/05/18 05:00 CONCLUSION: 1. Mild atelectasis and tiny effusion at the left lung base. 2. Interim extubation and nasogastric tube removal. Left chest tube, mediastinal drain and right IJ central venous catheter remain. Cardiovascular: RRR Telemetry: NSR Pulmonary: CTA GI/: NABS, NT Incision: dry and intact - Plan (2) S/P CABG (coronary artery bypass graft) Plan: Neuro: no narcotics tylenol for pain trazadone for sleep at night environmental cues Resp: pulm toileting nebs ezpap CV: ASA statin , BB , amiodarone GI: motility meds OOB/ PT (3) Aortic stenosis (4) CAD (coronary artery disease) (5) Diastolic heart failure (6) Chest pain Encourage ambulation Plan D/C tomorrow Wean O2. (3) Aortic stenosis Qualifiers: Cardiac valve disease etiology: etiology unspecified Qualified Code(s): I35.0 - Nonrheumatic aortic (valve) stenosis (4) CAD (coronary artery disease) Qualifiers: Coronary Disease-Associated Artery/Lesion type: [place] artery [place] vs. transplanted heart: [place] heart Associated angina: with stable angina Qualified Code(s): I25.118 - Atherosclerotic heart disease of [place] coronary artery with other forms of angina pectoris (5) Diastolic heart failure Qualifiers: Heart failure chronicity: acute on chronic Qualified Code(s): I50.33 - Acute on chronic diastolic (congestive) heart failure (6) Chest pain Qualifiers: Chest pain type: chest pain due to myocardial ischemia Ischemic chest pain type: stable angina pectoris Qualified Code(s): I20.8 - Other forms of angina pectoris
[2018-06-08] MEDS: traZODone 50 MG Tablet PO SCH (22:39)
[2018-06-09] MEDS ORDERED: Metoprolol Tartrate 25 MG Tablet PO SCH (09:00)
[2018-06-09] MEDS: Insulin NovoLOG Aspart Correctional Sugar Inj SQ SCH ×2 (09:08→11:30)
[2018-06-09] MEDS: Finasteride 5 MG Tablet PO SCH (09:10)
[2018-06-09] MEDS: Multivitamin/Minerals Therapeutic Tablet PO SCH (09:10)
[2018-06-09] MEDS: Polyethylene Glycol 3350 17 GM Packet PO SCH (09:11)
[2018-06-09] MEDS: Docusate Sodium 100 MG Capsule PO SCH (09:11)
[2018-06-09] MEDS: Amiodarone 200 MG Tablet PO SCH (09:12)
[2018-06-09] MEDS: amLODIPine 5 MG Tablet PO SCH (09:12)
--- NOTE | 2018-06-09 11:28 | P.DS ---
Date of admission: 06/04/18 05:07 Primary care physician: No Primary Care Physician Attending physician on discharge: Valerie Pal Anticipated date of discharge: 06/09/18 Brief History from admission: 78-year-old male patient of Dr. Angelita Goodman, also Dr. Riley, who has symptoms of fatigue, known heart murmur for the last 20 years. Went in for a followup visit with Dr. Riley with a recent positive nuclear stress test. Underwent elective cardiac catheterization today, which showed an ejection fraction of 60%, proximal LAD 75% stenosed, the circumflex was 90% stenosed, the OM 90%, the RCA was 99% stenosed, which was nondominant. The patient also has history of aortic valve stenosis. Recent echocardiogram on 05/25/2018 from showed an aortic valve area 0.8, some trace mitral regurgitation, mild tricuspid regurgitation. We were consulted to evaluate for coronary artery bypass grafting and aortic valve replacement. PAST MEDICAL HISTORY: Carotid artery disease. Most recent carotid ultrasound showed less than 50% on right and left internal carotids, History of CVA, TIA. He had a lacunar infarct noticed on an MRI of the brain in 10/2017. There were revealed some scattered old lacunar infarcts within the bilateral basal ganglia, History of hypertension, Hyperlipidemia, Diet-controlled diabetes mellitus, Crohn's disease, Remote history of gastrointestinal bleed when he was 33 years old. Patient update on day of discharge: pt doing well, no further confusion + 5 kg, dose of lasix given, will dc with 7 day supply of lasix weaning 02, walk test pending rhythm stable DS: Diagnosis - Discharge Diagnosis (1) S/P AVR (aortic valve replacement) Status: Acute (2) S/P CABG (coronary artery bypass graft) Status: Acute (3) Aortic stenosis Status: Acute (4) CAD (coronary artery disease) Status: Chronic (5) Diastolic heart failure Status: Chronic (6) Chest pain Status: Acute DS: Medications - Discharge Medications Prescriptions: amiodarone 200 mg PO Q12HR #28 tab docusate sodium [DOK] 100 mg PO BID #30 cap furosemide [Lasix] 40 mg PO DAILY #7 tab metoprolol tartrate 12.5 mg PO BID #60 tab tdlfouma-amjp-QU-calcium-mins [Thera M Plus (ferrous fumarat)] 1 tab PO DAILY # 30 tab potassium chloride 20 meq PO DAILY #7 tab tramadol [Ultram] 50 mg PO Q6H PRN #20 tab PRN Reason: Acute Pain DS: Summary Hospital Course: 06/04/18 pt electively admitted for surgery surgery: AVR, 23 Koo tissue valve, CABG x 3 06/05/18 Confused this morning. O and A x 1. No focal findings on exam, but repeats himself and isn't following commands either. 06/06/18 Periods of agitation and confusion - improved since yesterday. He is refusing to take oral medications. 06/07 not sleeping well at night confusion improving , family member at bedside still seeing things on the wall, but improving per pt on room air , remains in NSR 06/08/18 Doing well. O and A x 4. No more confusion, etc 06/09 remains on 2 liters, will complete walk test to eval for home 02 if stable then dc home today - Time Spent with Patient Total time spent providing and/or coordinating discharge services: Greater than 30 minutes - Quality: VTE Deep Vein Thrombosis/Pulmonary Embolism Present on Admission: No Exam Vital signs: Vital Signs 06/08/18 11:37 06/08/18 12:00 06/08/18 13:00 Temperature 97.8 F Pulse Rate 78 85 78 Respiratory Rate 18 Blood Pressure 121/56 L Pulse Oximetry 98 06/08/18 13:28 06/08/18 14:00 06/08/18 15:00 Temperature Pulse Rate 78 82 86 Respiratory Rate 18 Blood Pressure Pulse Oximetry 06/08/18 15:44 06/08/18 15:45 06/08/18 17:00 Temperature 98.0 F Pulse Rate 86 86 88 Respiratory Rate 18 Blood Pressure 125/59 L Pulse Oximetry 96 06/08/18 18:00 06/08/18 19:00 06/08/18 20:00 Temperature 98.0 F Pulse Rate 90 90 84 Respiratory Rate 18 Blood Pressure 136/64 Pulse Oximetry 97 06/08/18 21:00 06/08/18 22:00 06/08/18 23:00 Temperature Pulse Rate 80 86 84 Respiratory Rate Blood Pressure Pulse Oximetry 06/09/18 00:00 06/09/18 01:00 06/09/18 02:00 Temperature 98.0 F Pulse Rate 84 74 70 Respiratory Rate 18 Blood Pressure 124/58 L Pulse Oximetry 96 06/09/18 03:00 06/09/18 04:00 06/09/18 05:00 Temperature 98.5 F Pulse Rate 84 72 77 Respiratory Rate 18 Blood Pressure 141/63 H Pulse Oximetry 98 06/09/18 06:00 06/09/18 07:00 06/09/18 08:00 Temperature 98.5 F Pulse Rate 78 79 85 Respiratory Rate 20 Blood Pressure 141/65 H Pulse Oximetry 98 06/09/18 09:00 06/09/18 10:00 06/09/18 11:00 Temperature Pulse Rate 92 H 73 75 Respiratory Rate Blood Pressure Pulse Oximetry Intake & Output 06/08/18 06/09/18 06/09/18 18:59 06:59 18:59 Intake Total 850 / 850 480 / 480 Output Total 500 / 500 400 / 400 Balance 350 / 350 80 / 80 Weight 89.5 kg Intake: Oral 850 / 850 480 / 480 Output: Urine 500 / 500 400 / 400 Other: Date of Last Bowel Movement 06/08/18 06/08/18 06/08/18 # Bowel Movements 0 0 - Constitutional no acute distress - Routine HEENT Exam Head: Present: normocephalic, atraumatic Eye: Present: EOMI, PERRL, normal accommodation - Routine Neck Exam Present: supple, full ROM - Routine Chest/Breast/Axilla Exam Chest wall: Present: tenderness - Routine Respiratory Exam Present: decreased breath sounds Comments: faint basilar crackles - Routine Cardiovascular Exam Present: RRR, S1, S2 - Routine Abdominal Exam Present: soft, normoactive bowel sounds - Routine Extremities Exam Present: full ROM, pulses intact, normal capillary refill - Routine Skin Exam Present: intact, wounds Comments: prevena dressing to chest, leg incision intact and well approximated - Routine Neurological Exam Present: alert, oriented X3, CN II-XII intact Results Procedures completed during hospitalization: 06/04/18 Preoperative Diagnosis (1) Aortic stenosis (2) CAD (coronary artery disease) (3) Diastolic heart failure (4) Chest pain Postoperative Diagnosis: same Date of procedure: 06/04/18 Procedure: AVR with a 23 Koo Magna Ease tissue valve CABG x 3 MCKENZIE to LAD - good SVG to OM3 - good SVG to PDA - good EVH Pending studies at discharge: Pending at discharge 06/04/18 15:02 Surgical [PTH] Routine Labs on day of discharge: Labs from last 24 hours 06/09/18 06/09/18 06/08/18 11:00 07:41 22:36 POC Glucose 142 H 132 H 153 H - Impressions ITS Impressions Chest X-Ray 06/05/18 05:00 CONCLUSION: 1. Mild atelectasis and tiny effusion at the left lung base. 2. Interim extubation and nasogastric tube removal. Left chest tube, mediastinal drain and right IJ central venous catheter remain. Discharge Plan - Discharge Disposition Patient Disposition: Disch W/Home Health Service - Discharge Condition Condition: Good - Discharge Order Discharge Orders: Discharge Order (Routine); Ordered 06/09/18 Ordered By: Nuzhat Person - Discharge Details Anticipated Discharge Date: 06/09/18 Discharge Comment: after walk test obtained - Physicians Team Primary Care Provider: Primary Care Daisha Melendez Attending Provider: Valerie Pal - Rxs /Orders / Referrals /Forms Prescriptions: New amiodarone 200 mg Tablet 200 mg PO Q12HR Qty: 28 RF: 0 docusate sodium [DOK] 100 mg Capsule 100 mg PO BID Qty: 30 RF: 0 furosemide [Lasix] 20 mg Tablet 40 mg PO DAILY Qty: 7 RF: 1 metoprolol tartrate 25 mg Tablet 12.5 mg PO BID Qty: 60 RF: 2 jfgiuvnr-iise-VJ-calcium-mins [Thera M Plus (ferrous fumarat)] 9 mg iron-400 mcg Tablet 1 tab PO DAILY Qty: 30 RF: 2 potassium chloride 10 mEq Tablet Extended Release 20 meq PO DAILY Qty: 7 RF: 1 tramadol [Ultram] 50 mg Tablet 50 mg PO Q6H PRN (Reason: Acute Pain) Qty: 20 RF: 0 Continue aspirin [Aspir-Low] 81 mg Tablet,Delayed Release (Dr/Ec) 81 mg PO DAILY candesartan-hydrochlorothiazid 32-25 mg Tablet 1 tab PO DAILY finasteride 5 mg Tablet 5 mg PO DAILY lovastatin 40 mg Tablet 40 mg PO DAILY metformin 500 mg Tablet 500 mg PO DAILY rivastigmine 9.5 mg/24 hr Patch 24 Hour 9.5 mg TRANSDERMAL DAILY silodosin [Rapaflo] 8 mg Capsule 8 mg PO DAILY Discontinued amlodipine 5 mg Tablet 5 mg PO DAILY Ambulatory Orders / Order Sets / DME: Echo 2D Comp with doppler (Routine) Timeframe: 2 Weeks Location: Determined by Patient Ordered By: Nuzhat Person Walker With Front Wheels (1 each) (Routine) Location: Determined by Patient Ordered By: Nuzhat Person XR chest 2V PA&LAT (Routine) Timeframe: 2 Weeks Location: Determined by Patient Ordered By: Nuzhat Person Basic Metabolic Panel (Routine) Timeframe: 2 Weeks Location: Determined by Patient Ordered By: Nuzhat Person Complete Blood Count NO Diff (Routine) Timeframe: 2 Weeks Location: Determined by Patient Ordered By: Nuzhat Person Referrals: Huma Felipe [Other] - See Instructions ( Your appointment has been scheduled for [06/22/18] at [2:00 pm] If you cannot make this appointment, please call the office to reschedule ) [facility], [Agency] - See Instructions Perry Riley MD [Physician] - See Instructions ( Your appointment has been scheduled for [06/15/18] at [11:45 am] If you cannot make this appointment, please call the office to reschedule ) Nuzhat Person [ADVANCE RN PRACTITIONER] - See Instructions ( Your appointment has been scheduled for [06/24/18] at [11:00 am] If you cannot make this appointment, please call the office to reschedule ) - Discharge Instructions Patient Printed Instructions: Metoprolol (By mouth), Amiodarone (By mouth), Laxative, Stool Softeners (By mouth), Multivitamins, Adult Formula (By mouth), Tramadol (By mouth), Heart Healthy Diet (DC), Sternal Precautions (GEN), CABG ( Coronary Artery Bypass Graft) (DC), CABG (Coronary Artery Bypass Graft) (GEN) Additional Instructions: HOME HEALTH CARE HAS BEEN ARRANGED WITH [facility], CONTACT#[phone] Echocardiogram scheduled for 06/21/18 at 2:[address] Riley's office. PREVENA Single Use Negative Wound Therapy System Caregiver Instruction Sheet 1. A Prevena dressing system was applied to the chest incision during surgery , to promote wound healing. It works via a suction device (negative pressure wound therapy) to remove low to moderate levels of exudate (drainage) and infectious materials. We recommend that the device stay in place for up to seven days, from day of surgery. 2. Day of Surgery____// Day of Removal ___/09/24 3. The dressing should only be removed by a health healthcare financial analyst. Please arrange removal of device to coincide with Home Health visit and or with Nursing staff at Rehab 4. If skin reddening or irritation of skin occurs, or excessive drainage, please notify the Cardiovascular Surgeons office at [phone]. 5. Light showering is permissible; however the pump should be disconnected and placed in safe location, where it will not get wet. The dressing should not be exposed to direct spray or submerged in water. No bath tub / shower only. Ensure the end of the tubing attached to the dressing is facing down so that water does not enter the top of the tube. 6. To remove Prevena dressing: press purple button to turn off device / remove the suction. Then disconnect the tubing from the pump. The fixation strips should be stretched away from the skin and the dressing lifted at one corner and peeled back until it has been fully removed. 7. After removal, it is ok to shower daily using liquid dial soap and clean wash cloth, rinse and pat dry, and leave incision open to air dry. For any concerns regarding Prevena dressing, and or wounds, please contact Meena Berry, patient navigator at [phone] or notify the Cardiovascular Surgeons office at [phone]. Incentive spirometry Q1 hr x 10, while awake, also use acapella device hourly whole awake Sternal Breast Bone Precautions: NO pushing or pulling, ( pt must use sternal pillow to support chest with all activities and with coughing ( takes up to 3 months breast bone to heal ) Daily incision care: ok to shower daily, no tub bath. Wash all incisions with liquid dial soap, clean wash cloth to each site, rinse and pat dry. Observe for any signs of infection, such as drainage which is dark yellow, lucas, green or foul smelling. Immediately report to the surgeon any drainage from the chest incision, or legs, and for any abnormal drainage from the chest tube sites. Notify surgeon if any temp >101.5 degrees F. When specialty dressing removed/ or if you do not have one, continue to shower daily as above, then rinse and pat incision dry and paint with betadine daily x 5 days. Allow steri strips to fall off if you have any. Avoid lotions, creams, salves, oils, etc. for the first month Please see attached forms for additional instructions regarding post Open Heart specialty wound vacuum dressings. LUZ MARINA or Prevena , Dressing to be removed by Nursing staff on For Dr. Pal patients , please obtain CBC, BMP, PA & Lat CXR in 2 weeks, results to Dr. Pal ( prescription will be given) ( ) (Tele: [phone]) , Valve replacement pts will need 2decho in 2 weeks with results to Dr. Pal . Please obtain 2 d echo at your car top bolter office if possible F/U appointment: as per DC instructions: PCP in 2 weeks, CV surgeon 2 weeks, Senior Quality Manager 3-4 weeks For any questions regarding incisions/ dressing / meds / post op care or above Symptoms, Thursday 8am-5pm Heart & Vascular Surgery Office ( Dr. Kaminski & Dr. Pal), After Hours / Nights (5pm -8am) Weekends and Holidays Please call [facility] ([facility]) Charge Nurse
== END 2018-06-09 14:22 | disposition home health service (06) | DRG 219 ==
LOC: HSDI 05:07 → HCVI 13:39 → HCPC 06-06 19:02
PROVIDERS: ADMIT Thoracic Surgery (Cardiothoracic Vascular Surgery); ATTEND Thoracic Surgery (Cardiothoracic Vascular Surgery)
CPT/HCPCS: 36430; 71010; 71045; 76937; 80048; 82948; 82962; 83735; 85025; 85027; 86850; 86900; 86901; 86923; 88305; 88311; 93005; 93312; 93318; 94002; 94150; 94618; 94620; 94640; 94650; 94651; 94656; 94664; 94665; 94667; 97110; 97116; 97162; 97530; C9248; J0131; J0360; J0690; J1644; J1815; J1817; J1940; J2150; J2250; J2405; J2440; J2930; J3010; J3370; J3480; J7120; P9016; P9045; P9047